=== PATIENT | male | born 1985 | race Caucasian/White ===

== ENCOUNTER → 2017-02-23 | Day surgery (SDC) | payer OTHER ==
[~2017-02-23] MED LIST: DARVOCET-N 1001 EACH PO; FLOMAX 0.4MG C0.4 MG PO; LORTAB 5/500 501 TAB PO; NAPROSYN 500MG500 MG PO; NOMEDS XX; PHENERGAN 25MG.25 M1 PO; SKELAXIN 800MG800 MG PO; TORADOL10 MG PO; TYLENOL W/CODEI1 TA2 PO; ULTRAM50 MG PO; VOLTAREN75 MG PO
--- NOTE | 2017-02-23 07:57 | Operative Note ---
Surgeon/Diagnoses Surgeon/Telephone Order Clerk(s) Date of procedure: 02/23/17 Surgeon: MD Heike Altamirano Telephone Order Clerk(s): Betty Godfrey Diagnoses Pre-op diagnosis: LEFT upper extremity lipoma (2 cm) Post-op diagnosis Same Procedure Procedure Procedure: Excision of 2 cm LEFT upper extremity lipoma Indications: STACY PENA is a 32 year-old Male with a history of enlarging/painful lipoma of the LEFT upper extremity. Findings: Somewhat complex lipomatous lesion in the subcutaneous tissue of the LEFT upper extremity Procedure Description: After informed consent was obtained, the patient was taken to the procedure room. His distal LEFT upper extremity was prepped and draped in a sterile fashion. After infiltration with local anesthetic an incision was made overlying the lesion. The subcutaneous tissue was sharply dissected. A complex lipomatous lesion was encountered and was carefully excised with a combination of blunt dissection and sharp dissection. The lesion was passed off for pathologic evaluation. Skin was closed with interrupted 4-0 nylon in a mattress fashion. Dressings were applied and the patient was transferred to recovery in stable condition. EBL (ml): 5 Anesthesia: 1 percent lidocaine Complications: No immediate Specimens: 2 cm LEFT upper extremity lipoma Disposition Disposition: Stable to recovery from where he will be discharged home. He will follow up in one week. at [id number]
--- NOTE | 2017-02-23 07:57 | Operative Note ---
Surgeon/Diagnoses Surgeon/Customer Service Associate(s) Date of procedure: 02/23/17 Surgeon: MD Heike Altamirano Customer Service Associate(s): Betty Godfrey Diagnoses Pre-op diagnosis: LEFT upper extremity lipoma (2 cm) Post-op diagnosis Same Procedure Procedure Procedure: Excision of 2 cm LEFT upper extremity lipoma Indications: STACY PNEA is a 32 year-old Male with a history of enlarging/painful lipoma of the LEFT upper extremity. Findings: Somewhat complex lipomatous lesion in the subcutaneous tissue of the LEFT upper extremity Procedure Description: After informed consent was obtained, the patient was taken to the procedure room. His distal LEFT upper extremity was prepped and draped in a sterile fashion. After infiltration with local anesthetic an incision was made overlying the lesion. The subcutaneous tissue was sharply dissected. A complex lipomatous lesion was encountered and was carefully excised with a combination of blunt dissection and sharp dissection. The lesion was passed off for pathologic evaluation. Skin was closed with interrupted 4-0 nylon in a mattress fashion. Dressings were applied and the patient was transferred to recovery in stable condition. EBL (ml): 5 Anesthesia: 1 percent lidocaine Complications: No immediate Specimens: 2 cm LEFT upper extremity lipoma Disposition Disposition: Stable to recovery from where he will be discharged home. He will follow up in one week. at [id number]
[2017-02-23 08:18] VITALS: BP 116/79
== END ==
LOC: SDC 07:01
PROVIDERS: Surgery
PROC: 0JBF3ZZ Excision of Left Upper Arm Subcutaneous Tissue and Fascia, Percutaneous Approach (ICD-10-PCS; 2017-02-23)
PROC: 0HBCXZX Excision of Left Upper Arm Skin, External Approach, Diagnostic (ICD-10-PCS; principal; 2017-02-23 07:30)
DX: D17.22 Benign lipomatous neoplasm of skin and subcutaneous tissue of left arm (principal); R20.8 Other disturbances of skin sensation